=== PATIENT | male | born 1955 | race Caucasian/White ===

== ENCOUNTER 2017-09-27 01:13 | Inpatient (IN) | payer MEDICAID ==
[2017-09-27] MEDS: SODIUM CHLORIDE 0.9% 1L BAG IV* (01:37)
[2017-09-27] MEDS: ACETAMINOPHEN 325 MG TAB PO (01:37)
[2017-09-27] MEDS: ACETAMINOPHEN 500 MG TAB PO (03:44)
[2017-09-27 04:02] LABS: WHITE BLOOD COUNT 13.5 10^3/ul (4.8-10.8)
[2017-09-27 04:02] LABS: ABNORMAL IP MESSAGE 1; HEMATOCRIT 36.8 % (42.0-52.0); HEMOGLOBIN 12.7 g/dl (14.0-18.0); MEAN CORPUSCULAR HEMOGLOBIN 30.5 pg (29.0-33.0); MEAN CORPUSCULAR HGB CONC 34.5 g/dl (32.0-37.0); MEAN CORPUSCULAR VOLUME 88.2 fl (82.0-101.0); MEAN PLATELET VOLUME 9.6 fl (7.4-10.4); PLATELET COUNT 80 10^3/UL (140-415); POSITIVE DIFF @See below; RED BLOOD COUNT 4.17 10^6/ul (4.70-6.10); RED CELL DISTRIBUTION WIDTH 13.5 % (11.5-14.5)
[2017-09-27 04:06] LABS: ADD MAN DIFF? YES
[2017-09-27 04:24] LABS: LACTIC ACID 1.4 mmol/L (0.5-2.0)
[2017-09-27 04:26] LABS: ALANINE AMINOTRANSFERASE 41 IU/L (13-69); ALBUMIN 3.6 g/dl (3.3-4.9); ALBUMIN/GLOBULIN RATIO 0.97; ALKALINE PHOSPHATASE 106 IU/L (42-121); ANION GAP 14 (8-16); ASPARTATE AMINO TRANSFERASE 44 IU/L (15-46); BILIRUBIN,INDIRECT 0.7 mg/dl (0-1.1); BILIRUBIN,TOTAL 0.7 mg/dl (0.2-1.3); BLOOD UREA NITROGEN 15 mg/dl (7-20); CALCIUM 8.4 mg/dl (8.4-10.2); CARBON DIOXIDE 22 mmol/L (21-31); CHLORIDE 102 mmol/L (97-110); CREATININE 0.97 mg/dl (0.61-1.24); GLUCOSE 133 mg/dl (70-220); INR 1.22; PROTIME 15.6 Sec (11.9-14.9); PT RATIO 1.2; SODIUM 134 mmol/L (135-144); TOTAL PROTEIN 7.3 g/dl (6.1-8.1)
[2017-09-27 04:27] LABS: PARTIAL THROMBOPLASTIN TIME 34.9 Sec (25.0-35.0)
[2017-09-27] MEDS: AZTREONAM 1 GM/NS (PMX) 50 ML IVPB (04:30)
[2017-09-27 04:46] LABS: ANISOCYTOSIS 1+ (0-0); BAND NEUTROPHILS #M 3.1 10^3/ul (0.0-0.6); BAND NEUTROPHILS % (M) 23 % (0-4); LYMPHOCYTES #M 0.9 10^3/ul (0.8-2.9); LYMPHOCYTES % (M) 7 % (15-51); MICROCYTOSIS 1+ (0-0); MONOCYTE #M 1.2 10^3/ul (0.3-0.9); MONOCYTES % (M) 9 % (0-11); PLATELET ESTIMATE DECREASED; POLYCHROMASIA 3+ (0-0); SEG NEUT #M 8.7 10^3/ul (1.7-7.5); SEGMENTED NEUTROPHILS (M) % 61 % (39-77); SMUDGE%M 2 % (0-0)
[2017-09-27] MEDS ORDERED: KETOROLAC 30 MG INJ (05:16)
[2017-09-27] MEDS: VANCOMYCIN 1 GM (PMX) 250 ML IVPB (05:24)
[2017-09-27] MEDS: KETOROLAC 30 MG INJ IV (05:24)
[2017-09-27] MEDS: SOD CHLORIDE 0.9% 1,000 ML IV (05:24)
[2017-09-27] MEDS ORDERED: NACL 0.9% 3 ML SYG IV (05:30)
[2017-09-27] MEDS ORDERED: ACETAMINOPHEN 325 MG TAB PO ×2 (05:30)
[2017-09-27] MEDS ORDERED: ALBUTEROL/IPRATROPIUM (NEB) 3 ML AMP HHN (05:30)
[2017-09-27] MEDS ORDERED: MAGNESIUM HYDROXIDE 30ML CUP PO (05:30)
[2017-09-27] MEDS ORDERED: ZOLPIDEM 5 MG TAB PO (05:30)
[2017-09-27] MEDS ORDERED: DOCUSATE SODIUM 100 MG CAP PO (05:30)
[2017-09-27] MEDS ORDERED: VANCOMYCIN IV PER PHARMACY XX (05:30)
[2017-09-27] MEDS ORDERED: ONDANSETRON 4 MG INJ IV ×2 (05:30)
[2017-09-27] MEDS: PANTOPRAZOLE (EC) 40 MG TAB PO (06:13)
[2017-09-27 06:31] LABS: LACTIC ACID 1.1 mmol/L (0.5-2.0)
[2017-09-27 09:29] LABS: ADD UMIC NO; UR ASCORBIC ACID NEGATIVE (NEGATIVE); UR BILIRUBIN (Dip) NEGATIVE (NEGATIVE); UR BLOOD (Dip) NEGATIVE (NEGATIVE); UR CLARITY CLEAR (CLEAR); UR COLOR YELLOW (YELLOW); UR GLUCOSE (Dip) 1+ mg/dL (NEGATIVE); UR KETONES (Dip) NEGATIVE (NEGATIVE); UR LEUKOCYTE ESTERASE (Dip) NEGATIVE Leu/ul (NEGATIVE); UR NITRITE (Dip) NEGATIVE (NEGATIVE); UR SPECIFIC GRAVITY (Dip) 1.011 (1.003-1.030); UR TOTAL PROTEIN (Dip) NEGATIVE (NEGATIVE); UR UROBILINOGEN (Dip) NEGATIVE (NEGATIVE)
[2017-09-27] MEDS: CEFEPIME 1GM/50 ML (PMX) 50 ML IVPB ×2 (09:30→21:09)
[2017-09-27] MEDS: ENOXAPARIN 40 MG/0.4 ML SYG SC (12:44)
[2017-09-27] MEDS ORDERED: VANCOMYCIN 1 GM in SODIUM CHLORIDE 0.45 % 250 ML IVPB (16:00)
[2017-09-27] MEDS: VANCOMYCIN 1 GM in SOD CHLORIDE 0.9% 250 ML IVPB (18:50)
[2017-09-27] MEDS: METOPROLOL 25 MG TAB PO (21:00)
[2017-09-28] MEDS: PANTOPRAZOLE (EC) 40 MG TAB PO (05:44)
[2017-09-28] MEDS: VANCOMYCIN 1 GM in SOD CHLORIDE 0.9% 250 ML IVPB (05:44)
[2017-09-28 06:21] LABS: ADD MAN DIFF? NO
[2017-09-28 06:32] LABS: WHITE BLOOD COUNT 3.7 10^3/ul (4.8-10.8)
[2017-09-28 06:32] LABS: ABNORMAL IP MESSAGE 1; BASOPHILS % 0.5 % (0.0-2.0); EOSINOPHILS # 0.1 10^3/ul (0.0-0.5); HEMATOCRIT 31.7 % (42.0-52.0); HEMOGLOBIN 10.7 g/dl (14.0-18.0); LYMPHOCYTES % 25.9 % (15.0-51.0); MEAN CORPUSCULAR HEMOGLOBIN 30.4 pg (29.0-33.0); MEAN CORPUSCULAR HGB CONC 33.8 g/dl (32.0-37.0); MEAN CORPUSCULAR VOLUME 90.1 fl (82.0-101.0); MEAN PLATELET VOLUME 10.7 fl (7.4-10.4); MONOCYTE # 0.4 10^3/ul (0.3-0.9); MONOCYTES % 11.4 % (0.0-11.0); NEUTROPHIL # 2.2 10^3/ul (1.6-7.5); NEUTROPHILS % 58.9 % (39.0-77.0); PLATELET COUNT 63 10^3/UL (140-415); POSITIVE DIFF @See below; RED BLOOD COUNT 3.52 10^6/ul (4.70-6.10); RED CELL DISTRIBUTION WIDTH 13.5 % (11.5-14.5)
[2017-09-28 07:15] LABS: PHOSPHORUS 2.8 mg/dl (2.5-4.9)
[2017-09-28 07:15] LABS: MAGNESIUM 1.7 mg/dl (1.7-2.5)
[2017-09-28 07:17] LABS: ALANINE AMINOTRANSFERASE 37 IU/L (13-69); ALBUMIN 2.5 g/dl (3.3-4.9); ALBUMIN/GLOBULIN RATIO 0.78; ALKALINE PHOSPHATASE 78 IU/L (42-121); ANION GAP 14 (8-16); ASPARTATE AMINO TRANSFERASE 30 IU/L (15-46); BILIRUBIN,INDIRECT 0.2 mg/dl (0-1.1); BILIRUBIN,TOTAL 0.2 mg/dl (0.2-1.3); BLOOD UREA NITROGEN 18 mg/dl (7-20); CALCIUM 8.1 mg/dl (8.4-10.2); CARBON DIOXIDE 24 mmol/L (21-31); CHLORIDE 110 mmol/L (97-110); CREATININE 1.03 mg/dl (0.61-1.24); GLUCOSE 105 mg/dl (70-220); POTASSIUM 3.6 mmol/L (3.5-5.1); SODIUM 144 mmol/L (135-144); TOTAL PROTEIN 5.7 g/dl (6.1-8.1)
[2017-09-28] MEDS: CEFEPIME 1GM/50 ML (PMX) 50 ML IVPB ×2 (09:03→20:40)
[2017-09-28] MEDS: METOPROLOL 25 MG TAB PO ×2 (09:04→20:40)
[2017-09-28] MEDS: ENOXAPARIN 40 MG/0.4 ML SYG SC (09:09)
[2017-09-28] MEDS: morphine 2 MG INJ IV ×4 (10:16→23:13)
[2017-09-28] MEDS ORDERED: VANCOMYCIN 1 GM (PMX) 250 ML IVPB (17:00)
[2017-09-28 17:53] LABS: VANCOMYCIN,TROUGH 9.6 ug/ml (10.0-20.0)
[2017-09-28] MEDS: VANCOMYCIN 1 GM (PMX) 250 ML IVPB (18:22)
[2017-09-29] MEDS: morphine 2 MG INJ IV ×5 (04:25→22:33)
[2017-09-29] MEDS: VANCOMYCIN 1.25 GM in SODIUM CHLORIDE 0.45 % 250 ML IVPB ×2 (05:47→18:06)
[2017-09-29] MEDS: PANTOPRAZOLE (EC) 40 MG TAB PO (05:47)
[2017-09-29 06:19] LABS: ADD MAN DIFF? NO
[2017-09-29 06:35] LABS: WHITE BLOOD COUNT 4.5 10^3/ul (4.8-10.8)
[2017-09-29 06:35] LABS: ABNORMAL IP MESSAGE 1; BASOPHILS % 0.7 % (0.0-2.0); EOSINOPHILS # 0.2 10^3/ul (0.0-0.5); EOSINOPHILS % 4.2 % (0.0-7.0); HEMATOCRIT 34.3 % (42.0-52.0); HEMOGLOBIN 11.8 g/dl (14.0-18.0); LYMPHOCYTES % 21.1 % (15.0-51.0); MEAN CORPUSCULAR HEMOGLOBIN 30.6 pg (29.0-33.0); MEAN CORPUSCULAR HGB CONC 34.4 g/dl (32.0-37.0); MEAN CORPUSCULAR VOLUME 89.1 fl (82.0-101.0); MEAN PLATELET VOLUME 10.5 fl (7.4-10.4); MONOCYTE # 0.4 10^3/ul (0.3-0.9); MONOCYTES % 8.9 % (0.0-11.0); NEUTROPHIL # 2.9 10^3/ul (1.6-7.5); PLATELET COUNT 86 10^3/UL (140-415); POSITIVE DIFF @See below; RED BLOOD COUNT 3.85 10^6/ul (4.70-6.10); RED CELL DISTRIBUTION WIDTH 13.4 % (11.5-14.5)
[2017-09-29 07:03] LABS: PHOSPHORUS 3.8 mg/dl (2.5-4.9)
[2017-09-29 07:03] LABS: MAGNESIUM 1.7 mg/dl (1.7-2.5)
[2017-09-29 07:07] LABS: ALANINE AMINOTRANSFERASE 42 IU/L (13-69); ALBUMIN 2.8 g/dl (3.3-4.9); ALKALINE PHOSPHATASE 90 IU/L (42-121); ANION GAP 14 (8-16); ASPARTATE AMINO TRANSFERASE 40 IU/L (15-46); BILIRUBIN,INDIRECT 0.2 mg/dl (0-1.1); BILIRUBIN,TOTAL 0.2 mg/dl (0.2-1.3); BLOOD UREA NITROGEN 20 mg/dl (7-20); CALCIUM 8.6 mg/dl (8.4-10.2); CARBON DIOXIDE 25 mmol/L (21-31); CHLORIDE 106 mmol/L (97-110); CREATININE 0.92 mg/dl (0.61-1.24); GLUCOSE 90 mg/dl (70-220); POTASSIUM 4.2 mmol/L (3.5-5.1); SODIUM 141 mmol/L (135-144); TOTAL PROTEIN 6.3 g/dl (6.1-8.1)
[2017-09-29] MEDS: CEFEPIME 1GM/50 ML (PMX) 50 ML IVPB ×2 (09:22→21:30)
[2017-09-29] MEDS: METOPROLOL 25 MG TAB PO ×2 (09:23→21:30)
[2017-09-29] MEDS: LACTULOSE 30ML CUP PO (16:24)
[2017-09-29] MEDS: DOCUSATE SODIUM 250 MG CAP PO ×2 (16:24→22:40)
[2017-09-30] MEDS: morphine 2 MG INJ IV ×5 (05:11→23:41)
[2017-09-30] MEDS: PANTOPRAZOLE (EC) 40 MG TAB PO (05:11)
[2017-09-30] MEDS: VANCOMYCIN 1.25 GM in SODIUM CHLORIDE 0.45 % 250 ML IVPB ×2 (05:52→18:04)
[2017-09-30] MEDS: DOCUSATE SODIUM 250 MG CAP PO ×2 (08:55→20:54)
[2017-09-30] MEDS: LACTULOSE 30ML CUP PO (08:55)
[2017-09-30] MEDS: METOPROLOL 25 MG TAB PO ×2 (08:56→20:55)
[2017-09-30] MEDS: CEFEPIME 1GM/50 ML (PMX) 50 ML IVPB (08:56)
[2017-10-01] MEDS: morphine 2 MG INJ IV ×4 (04:44→17:19)
[2017-10-01] MEDS: PANTOPRAZOLE (EC) 40 MG TAB PO (06:12)
[2017-10-01] MEDS: LEVOFLOXACIN 500 MG TAB PO (06:12)
[2017-10-01] MEDS: VANCOMYCIN 1.25 GM in SODIUM CHLORIDE 0.45 % 250 ML IVPB (06:12)
[2017-10-01 06:20] LABS: VANCOMYCIN,TROUGH 17.3 ug/ml (10.0-20.0)
[2017-10-01] MEDS: LACTULOSE 30ML CUP PO (08:46)
[2017-10-01] MEDS: DOCUSATE SODIUM 250 MG CAP PO ×2 (08:46→21:33)
[2017-10-01] MEDS: METOPROLOL 25 MG TAB PO ×2 (08:47→21:33)
[2017-10-01] MEDS: VANCOMYCIN 1 GM 250 ML IVPB (17:19)
[2017-10-01] MEDS: HYDROCODONE/APAP (5/325) TAB PO (21:41)
[2017-10-01] MEDS: LORAZEPAM 0.5 MG TAB PO (23:18)
[2017-10-02] MEDS: LEVOFLOXACIN 500 MG TAB PO (05:35)
[2017-10-02] MEDS: VANCOMYCIN 1 GM 250 ML IVPB (05:35)
[2017-10-02] MEDS: PANTOPRAZOLE (EC) 40 MG TAB PO (05:35)
[2017-10-02] MEDS: HYDROCODONE/APAP (5/325) TAB PO (05:45)
[2017-10-02] MEDS: LACTULOSE 30ML CUP PO (08:35)
[2017-10-02] MEDS: METOPROLOL 25 MG TAB PO (08:35)
[2017-10-02] MEDS: DOCUSATE SODIUM 250 MG CAP PO (08:35)
== END 2017-10-02 17:43 | disposition home or self-care (01) | DRG 872 ==
LOC: E/R 01:13 → PP2 05:20
DX: A41.9 Sepsis, unspecified organism (principal); D61.818 Other pancytopenia; I42.9 Cardiomyopathy, unspecified; Z86.74 Personal history of sudden cardiac arrest; E87.70 Fluid overload, unspecified; K76.6 Portal hypertension; L03.116 Cellulitis of left lower limb; L03.115 Cellulitis of right lower limb; Z59.0 Homelessness; I25.2 Old myocardial infarction; F10.20 Alcohol dependence, uncomplicated; F41.9 Anxiety disorder, unspecified; I10 Essential (primary) hypertension; G89.4 Chronic pain syndrome; Z91.19 Patient's noncompliance with other medical treatment and regimen; K70.31 Alcoholic cirrhosis of liver with ascites
CPT/HCPCS: 36415; 71010; 80053; 80202; 81003; 83605; 83735; 84100; 84484; 85025; 85610; 85730; 87040; 87081; 87086; 87400; 93005; 96374; 96375; 97163; 99285-25